=== PATIENT | female | born 1940 | race Caucasian/White ===

== ENCOUNTER 2020-03-31 07:47 | Outpatient (REF) | payer MEDICARE, OTHER, SELFPAY ==
[2020-03-31 08:40] LABS: MANUAL DIFF FLAG NO
[2020-03-31 08:48] LABS: Basophils Percent Auto 0.6 % (0-2); Eosinophils Absolute Auto 0.1 X10*3/uL (0.0-0.4); Eosinophils Percent Auto 1.3 % (0-4); Hematocrit 40.6 % (37-47); Hemoglobin 12.9 g/dl (12.0-16.0); Imm Gran Abs Auto 0.02 X10*3/uL (0.00-0.03); Imm Gran Pct Auto 0.4 % (0.0-0.4); Lymphocytes Absolute Auto 1.5 X10*3/uL (1.2-4.9); Lymphocytes Percent Auto 28.4 % (20-40); Mean Corpuscular HGB Conc 31.8 g/dl (31.0-35.0); Mean Corpuscular Hemoglobin 28.2 pg (27.0-33.0); Mean Corpuscular Volume 88.8 fL (80-98); Mean Platelet Volume 9.6 fL (9.4-12.3); Monocytes Absolute Auto 0.4 X10*3/uL (0.1-1.2); Monocytes Percent Auto 6.7 % (2-11); Neutrophils Absolute Auto 3.4 X10*3/uL (2.0-8.3); Neutrophils Percent Auto 62.6 % (45-73); Platelet Count 270 X10*3/uL (160-400); Red Blood Count 4.57 X10*6/uL (4.20-5.50); Red Cell Distribution Width 14.1 % (11.0-16.0); White Blood Count 5.4 X10*3/uL (4.8-10.8)
[2020-03-31 09:23] LABS: Alanine Aminotransferase 35 U/L (0-31); Albumin Level 4.7 g/dL (3.5-5.0); Alkaline Phosphatase 61 U/L (39-117); Anion Gap 14 (12-20); Aspartate Amino Transferase 33 U/L (5-31); Bilirubin Total 0.7 mg/dL (0.0-1.0); Blood Urea Nitrogen 23 mg/dL (9-16); Calcium 9.7 mg/dL (8.4-10.2); Carbon Dioxide 29 mmol/L (22-29); Chloride 103 mmol/L (96-108); Estimated Glomerular Filt Rate > 60; Glucose Fasting 95 mg/dL (60-99); Potassium 3.9 mmol/L (3.3-5.1); Sodium 142 mmol/L (135-145); Total Protein 7.3 g/dL (6.5-8.0)
[2020-03-31 09:35] LABS: Estimated Average Glucose 117 mg/dL; Hemoglobin A1c % 5.7 %
== END 2020-03-31 07:48 | disposition home or self-care (01) ==
LOC: HO.LAB 07:47
PROVIDERS: PCP Internal Medicine Endocrinology, Diabetes & Metabolism; Visit Provider Internal Medicine Endocrinology, Diabetes & Metabolism
DX: I10 Essential (primary) hypertension (principal); R73.03 Prediabetes
CPT/HCPCS: 36415; 80053; 83036; 85025

== ENCOUNTER 2020-11-13 08:35 | Outpatient (REF) | payer MEDICARE, OTHER, SELFPAY ==
[2020-11-13 09:25] LABS: Estimated Average Glucose 120 mg/dL; Hemoglobin A1c % 5.8 %
[2020-11-13 09:37] LABS: Alanine Aminotransferase 28 U/L (0-31); Albumin Level 4.6 g/dL (3.5-5.0); Alkaline Phosphatase 57 U/L (39-117); Anion Gap 14 (12-20); Aspartate Amino Transferase 25 U/L (5-31); Bilirubin Total 0.8 mg/dL (0.0-1.0); Blood Urea Nitrogen 16 mg/dL (9-16); Carbon Dioxide 31 mmol/L (22-29); Chloride 107 mmol/L (96-108); Cholesterol 197 mg/dL; Estimated Glomerular Filt Rate > 60; Glucose Fasting 101 mg/dL (60-99); HDL Cholesterol 61 mg/dL; LDL Cholesterol Calculated 113 mg/dl; Potassium 4.5 mmol/L (3.3-5.1); Sodium 147 mmol/L (135-145); Total Protein 7.1 g/dL (6.5-8.0); Triglycerides 119 mg/dL
== END 2020-11-13 08:36 | disposition home or self-care (01) ==
LOC: HO.LAB 08:35
PROVIDERS: PCP Internal Medicine Endocrinology, Diabetes & Metabolism; Visit Provider Internal Medicine Endocrinology, Diabetes & Metabolism
DX: I10 Essential (primary) hypertension (principal); E78.5 Hyperlipidemia, unspecified; R73.03 Prediabetes
CPT/HCPCS: 36415; 80053; 80061; 83036

== ENCOUNTER 2021-07-20 10:26 | Outpatient (REF) | payer MEDICARE, OTHER, SELFPAY ==
[2021-07-20 11:01] LABS: COVID-19 Test Negative (Negative)
== END 2021-07-20 10:27 | disposition home or self-care (01) ==
LOC: HO.LAB 10:26
PROVIDERS: PCP Internal Medicine Endocrinology, Diabetes & Metabolism; Visit Provider Internal Medicine
DX: Z20.822 Contact with and (suspected) exposure to COVID-19 (principal)
CPT/HCPCS: 87635; C9803

== ENCOUNTER 2022-04-30 09:21 | Outpatient (REF) | payer MEDICARE, OTHER, SELFPAY ==
[2022-04-30 10:21] LABS: COVID-19 Test Negative (Negative); IDNOW Serial# 08D9AD1C
== END 2022-04-30 09:22 | disposition home or self-care (01) ==
LOC: HO.LAB 09:21
PROVIDERS: PCP Internal Medicine Endocrinology, Diabetes & Metabolism; Visit Provider Internal Medicine
DX: Z20.822 Contact with and (suspected) exposure to COVID-19 (principal)
CPT/HCPCS: 87635; C9803

== ENCOUNTER 2022-05-17 11:00 | Emergency (ER) | payer MEDICARE, OTHER, SELFPAY ==
--- NOTE | ~2022-05-17 | XR_ITS ---
EXAMINATION: XR HIP, RIGHT CLINICAL INFORMATION: Pain. COMPARISON: None available. TECHNIQUE: Two views of the right hip. FINDINGS: AP pelvis: There is mild loss of right hip joint space. Left hip joint space is normal. No visible fracture, dislocation or subluxation seen. SI joints are normal. There is moderate size spondylosis L4-L5 disc level. Right hip: The right hip joint space is maintained normal. No visible acute fracture, dislocation or subluxation seen. No bony erosive changes. The soft tissues are normal. XR/XR hip RT w PEL1V IMPRESSION: 1. Mild degenerative changes right hip joint. No visible acute fracture or dislocation seen. 2. Unremarkable right hip exam. 3. Moderate spondylosis L4-L5 disc level.
[2022-05-17 11:04] VITALS: BP 157/94; PULSE 110; RESP 18; TEMP 36.7; O2SAT 99; BMI 24.3
--- NOTE | 2022-05-17 11:08 | ED_ITS ---
HPI - General Adult General Chief complaint: General Medical <BLU Neville - Last Filed: 05/17/22 15:52> Stated complaint: r leg pain <BLU Neville Last Filed: 05/17/22 15:52> Time Seen by Provider: 05/17/22 11:54 <BLU Neville Last Filed: 05/17/22 15:52> Source: patient <BLU Mcdonnell Last Filed: 05/17/22 13:57> Mode of arrival: ambulatory <BLU Mcdonnell Last Filed: 05/17/22 13:57> Limitations: no limitations <BLU Mcdonnell Last Filed: 05/17/22 13:57> History of Present Illness HPI narrative: Patient is a 82 year old assigned female at with no significant PMHx presenting to the emergency department today with right sided groin pain s/p getting into an SUV 5 days ago. Patient states that her groin pain is worse with ambulation and without radiation. Has tried diclofenac, Advil, and Tylenol with minimal relief. Patient states that she stopped the diclofenac secondary to gastric upset. Patient denies any dizziness, lightheadedness, abdominal pain, nausea, vomiting, fever, chills, blurry vision, double vision, loss of vision, chest pain, difficulty breathing, shortness of breath, back pain, night sweats, pain with urination, increased urinary frequency, increased urinary urgency, blood in her urine or stool, syncope or a near syncopal episode, bowel incontinence, bladder incontinence, bowel retention, bladder retention, or any other complaints at this time. <BLU Mcdonnell - Last Filed: 05/17/22 13:57> Onset (ago): day(s) (5) <BLU Mcdonnell - Last Filed: 05/17/22 13:57> Location: pelvis <BLU Mcdonnell Last Filed: 05/17/22 13:57> Radiation: non-radiation <BLU Mcdonnell - Last Filed: 05/17/22 13:57> Severity: mild <BLU Mcdonnell Last Filed: 05/17/22 13:57> Severity scale (1-10): 2 <BLU Mcdonnell Last Filed: 05/17/22 13:57> Quality: sharp <BLU Mcdonnell - Last Filed: 05/17/22 13:57> Relieving factors: immobilization <BLU Mcdonnell - Last Filed: 05/17/22 13:57> Exacerbating factors: movement <BLU Mcdonnell - Last Filed: 05/17/22 13:57> Associated symptoms: denies other symptoms <BLU Mcdonnell Last Filed: 05/17/22 13:57> Treatments prior to arrival: NSAID <BLU Mcdonnell - Last Filed: 05/17/22 13:57> Related Data Home medications: Previous Rx's Medication Instructions Recorded cyclobenzaprine 5 mg tablet 5 mg PO TID PRN groin strain 7 05/17/22 days #21 tabs <BLU Neville Last Filed: 05/17/22 15:52> Allergies/adverse reactions: Allergies Allergy/AdvReac Type Severity Reaction Status Date / Time lisinopril [LISINOPRIL] Allergy Unknown UNKNOWN Unverified 10/25/19 14:34 meperidine [From DEMEROL] Allergy Unknown UNKNOWN Unverified 10/25/19 14:34 <BLU Neville - Last Filed: 05/17/22 15:52> Review of Systems Review of Systems: Yes all other systems are reviewed and are negative <BLU Mcdonnell Last Filed: 05/17/22 13:57> Constitutional: Constitutional: Reports no additional constitutional complaints <BLU Mcdonnell Last Filed: 05/17/22 13:57> Eyes: Eyes: Reports no additional eye complaints and Denies loss of vision <BLU Mcdonnell - Last Filed: 05/17/22 13:57> ENT: Reports system reviewed and no additional complaints, except as documented and Denies dizziness <BLU Mcdonnell Last Filed: 05/17/22 13:57> Cardiovascular: Cardiovascular: Reports no additional cardiovascular complaints <BLU Mcdonnell - Last Filed: 05/17/22 13:57> Respiratory: Respiratory: Reports no additional respiratory complaints <BLU Mcdonnell Last Filed: 05/17/22 13:57> Gastrointestinal: Gastrointestinal: Reports no additional gastrointestinal complaints, Denies abdominal pain, Denies melena, Denies hematochezia, Denies change in bowel habits and Denies change in stool character <BLU Mcdonnell - Last Filed: 05/17/22 13:57> Genitourinary: Genitourinary: Denies hematuria, Denies urinary frequency, Denies dysuria, Denies urinary incontinence, Denies urinary hesitancy and Denies urinary urgency <BLU Mcdonnell - Last Filed: 05/17/22 13:57> Musculoskeletal: Musculoskeletal: Reports no additional musculoskeletal complaints, Denies numbness and Denies tingling <BLU Mcdonnell - Last Filed: 05/17/22 13:57> Comments: right groin pain <BLU Mcdonnell - Last Filed: 05/17/22 13:57> Neurologic: Denies dizziness, Denies loss of vision, Denies numbness and Denies tingling <BLU Mcdonnell - Last Filed: 05/17/22 13:57> Psychiatric: Psychiatric: Reports no additional psychiatric complaints <BLU Mcdonnell - Last Filed: 05/17/22 13:57> Endocrine: Endocrine: Reports no additional endocrine complaints <BLU Mcdonnell - Last Filed: 05/17/22 13:57> Hematologic/Lymphatic: Hematologic/Lymphatic: Reports no additional hematologic/lymphatic complaints <BLU Mcdonnell Last Filed: 05/17/22 13:57> Allergic/Immunologic: Allergic/Immunologic: Reports no additional allergic/immunologic complaints <BLU Mcdonnell Last Filed: 05/17/22 13:57> [facility] Past Medical History Attestation statement: The following information was validated with the patient. <BLU Mcdonnell - Last Filed: 05/17/22 13:57> Source: old records reviewed and nursing notes reviewed <BLU Mcdonnell Last Filed: 05/17/22 13:57> Social History Social History: Social History Advance Directives: Yes Advance Directives Information Provided: No Advance Directives on File: No <BLU Neville - Last Filed: 05/17/22 15:52> Physical Exam ED Vital Signs: Vital Signs - 24 hr 05/17/22 11:04 Temperature 98.1 F Pulse Rate 110 H Respiratory Rate 18 Blood Pressure 157/94 H Pulse Oximetry 99 Oxygen Delivery Method Room Air BMI result Body Mass Index 24.3 <BLU Neville - Last Filed: 05/17/22 15:52> Vital Signs - 24 hr 05/17/22 11:04 Temperature 98.1 F Pulse Rate 110 H Respiratory Rate 18 Blood Pressure 157/94 H Pulse Oximetry 99 Oxygen Delivery Method Room Air BMI result Body Mass Index 24.3 <BLU Mcdonnell - Last Filed: 05/17/22 13:57> Const General: cooperative, healthy appearing and no acute distress <BLU Mcdonnell - Last Filed: 05/17/22 13:57> Nutritional Appearance: average body habitus <BLU Mcdonnell - Last Filed: 05/17/22 13:57> Orientation/consciousness: oriented to person, oriented to place, oriented to time and patient oriented x3 <BLU Mcdonnell - Last Filed: 05/17/22 13:57> Limitations: no limitations <BLU Mcdonnell - Last Filed: 05/17/22 13:57> HENMT Head: Yes normal to inspection <BLU Mcdonnell - Last Filed: 05/17/22 13:57> Ears: hearing grossly normal bilaterally <BLU Mcdonnell - Last Filed: 05/17/22 13:57> General nose exam: Normal external nose present <BLU Mcdonnell - Last Filed: 05/17/22 13:57> Face and sinus: Yes normal facial exam <BLU Mcdonnell - Last Filed: 05/17/22 13:57> Mouth: Normal oral and palatal mucosa present, no drooling and no muffled voice <BUL Mcdonnell - Last Filed: 05/17/22 13:57> Eyes General: appearance normal, both eyes and all related structures <BLU Mcdonnell - Last Filed: 05/17/22 13:57> Periorbital: periorbital findings normal <BLU Mcdonnell - Last Filed: 05/17/22 13:57> Eyelids: Yes eyelids normal <BLU Mcdonnell - Last Filed: 05/17/22 13:57> Conjunctivae: conjunctivae normal <Es Godinez PA - Last Filed: 05/17/22 13:57> Pupils: Equal, round and reactive pupils present <Es Godinez PA - Last Filed: 05/17/22 13:57> EOM: EOMs intact bilaterally <Es Godinez PA - Last Filed: 05/17/22 13:57> Neck Neck: Yes normal visual inspection and Yes full ROM <Es Godinez PA - Last Filed: 05/17/22 13:57> Chest Chest palpation & inspection: normal inspection of the chest <Es Godinez PA - Last Filed: 05/17/22 13:57> Resp Effort & Inspection: normal respiratory effort and able to speak in complete sentences <Es Godinez PA - Last Filed: 05/17/22 13:57> Auscultation: clear to auscultation bilaterally <Es Godinez PA - Last Filed: 05/17/22 13:57> Cardio Rate: regular rate <Es Godinez PA - Last Filed: 05/17/22 13:57> GI Inspection: Yes normal to inspection <Es Godinez PA - Last Filed: 05/17/22 13:57> Skin General skin exam: no rashes or lesions noted, no ecchymosis and no erythema <Es Godinez PA - Last Filed: 05/17/22 13:57> Neuro General: oriented to person, oriented to place, oriented to time and patient oriented x3 <Es Godinez PA - Last Filed: 05/17/22 13:57> Cranial nerves: Yes Equal, round and reactive pupils present <Es Godinez PA - Last Filed: 05/17/22 13:57> Cognition (Neuro): normal cognition <Es Godinez PA - Last Filed: 05/17/22 13:57> Motor exam (neuro): 5/5 motor strength present throughout <Es Godinez PA - Last Filed: 05/17/22 13:57> Sensory Exam: Normal double simultaneous stimulation for sensation <Es Godinez PA - Last Filed: 05/17/22 13:57> Coordination: [id number] test normal <BLU Mcdonnell - Last Filed: 05/17/22 13:57> Extrem Other: Right inguinal ligament tender to palpation with full ROM and 5/5 streng th. No erythema/ecchymosis/deformity noted. <BLU Mcdonnell - Last Filed: 05/17/22 13:57> General: Yes normal to inspection and Yes full ROM <BLU Mcdonnell - Last Filed: 05/17/22 13:57> Right lower extremity: normal to inspection, full ROM and no joint enlargement <BLU Mcdonnell - Last Filed: 05/17/22 13:57> Psych Appearance: grossly normal <BLU Mcdonnell - Last Filed: 05/17/22 13:57> Mental Status: mental status grossly normal <BLU Mcdonnell - Last Filed: 05/17/22 13:57> Affect: normal affect <BLU Mcdonnell - Last Filed: 05/17/22 13:57> Attitude: cooperative <BLU Mcdonnell - Last Filed: 05/17/22 13:57> Thought process: Normal thought process present <BLU Mcdonnell - Last Filed: 05/17/22 13:57> Thought content: Normal thought content present <BLU Mcdonnell - Last Filed: 05/17/22 13:57> Insight: Good insight present (Psych) <BLU Mcdonnell - Last Filed: 05/17/22 13:57> Course Course Course Narrative: RME: 82 yold female presents to the ED for right groin pain worse on movement after trying to get into her SUV. patient states she went to her PCP and had normal right hip/femur xray last week after right groin pain starting. Labs and doppler of RLE ordered. <BLU Neville - Last Filed: 05/17/22 15:52> Medications Administered Discontinued Medications Generic Name Dose Route Start Last Admin Trade Name Freq PRN Reason Stop Dose Admin Cyclobenzaprine HCl 5 mg 05/17/22 12:14 05/17/22 12:23 Cyclobenzaprine Hcl 5 Mg Tablet PO 05/17/22 12:15 5 mg ONCE ONE Administration <BLU Neville Last Filed: 05/17/22 15:52> Medications Administered Discontinued Medications Generic Name Dose Route Start Last Admin Trade Name [place] PRN Reason Stop Dose Admin Cyclobenzaprine HCl 5 mg 05/17/22 12:14 05/17/22 12:23 Cyclobenzaprine Hcl 5 Mg Tablet PO 05/17/22 12:15 5 mg ONCE ONE Administration <BLU Mcdonnell Last Filed: 05/17/22 13:57> Medical Decision Making Medical Decision Making MDM Narrative: Patient is an 82 year old assigned female at with no significant PMH presenting to the emergency department today with right sided groin pain x5 days. Patient's physical exam showed mild tenderness to the affected area but was otherwise unremarkable. Patient's right hip XR showed no acute process. Patient's clinical presentation is most consistent with a right groin strain. I explained my physical exam findings as well as all test results to the patient. I answered all questions asked by the patient. Patient received cyclobenzaprine which she stated helped her symptoms significantly. I stressed the importance of the patient taking her medication as prescribed. I stressed the importance of the patient following up with her primary care provider and an orthopedic provider. I stressed the importance of the patient returning to the emergency department immediately if her symptoms were to worsen or if she were to develop any dizziness, shortness of breath, difficulty breathing, chest pain, blurry vision, loss of vision, nausea, vomiting, abdominal pain, fever, chills, back pain, or any other complaints. Patient verbalized agreement and understanding with this treatment plan and discharge. <BLU Mcdonnell Last Filed: 05/17/22 13:57> Differential Diagnosis Differential Diagnoses: The differential diagnosis associated with the presentation includes <BLU Mcdonnell Last Filed: 05/17/22 13:57> groin pain, groin strain <BLU Mcdonnell Last Filed: 05/17/22 13:57> Independent Interpretation I performed an independent interpretation of an: Plain X-Ray <BLU Mcdonnell Last Filed: 05/17/22 13:57> Interpretation: My interpretation is in agreement with the radiologist's impression of this imaging study. EXAMINATION: XR HIP, RIGHT CLINICAL INFORMATION: Pain. COMPARISON: None available. TECHNIQUE: Two views of the right hip. FINDINGS: AP pelvis: There is mild loss of right hip joint space. Left hip joint space is normal. No visible fracture, dislocation or subluxation seen. SI joints are normal. There is moderate size spondylosis L4-L5 disc level. Right hip: The right hip joint space is maintained normal. No visible acute fracture, dislocation or subluxation seen. No bony erosive changes. The soft tissues are normal.? XR/XR hip RT w PEL1V IMPRESSION: 1.? Mild degenerative changes right hip joint. No visible acute fracture or dislocation seen. 2.? Unremarkable right hip exam. 3.? Moderate spondylosis L4-L5 disc level. ? Dictated By: Joshua Burnett MD Signed By: Electronically signed by Joshua Burnett MD 05/17/22 1134 <BLU Mcdonnell - Last Filed: 05/17/22 13:57> Discharge Plan Discharge Clinical Impression: Groin strain <BLU Neville Last Filed: 05/17/22 15:52> Patient Disposition: Home, Self-Care <BLU Neville Last Filed: 05/17/22 15:52> Instructions: Groin Strain (ED) <BLU Neville Last Filed: 05/17/22 15:52> Additional Instructions: Follow up with your primary care provider and an orthopedic provider. Return to the emergency department immediately if your symptoms worsen or if you develop any dizziness, shortness of breath, difficulty breathing, chest pain, blurry vision, loss of vision, nausea, vomiting, abdominal pain, fever, chills, back pain, or any other complaints. <BLU Neville Last Filed: 05/17/22 15:52> Prescriptions: New cyclobenzaprine 5 mg tablet 5 mg PO TID PRN (Reason: groin strain) 7 Days Qty: 21 0RF <BLU Neville - Last Filed: 05/17/22 15:52> Referrals: [facility] [Provider Group] (Call to establish and follow up with an orthopedic provider. ) <BLU Neville - Last Filed: 05/17/22 15:52> Interventions: ED Discharge Assessment Last Done: 05/17/22 12:19 <BLU Neville - Last Filed: 05/17/22 15:52> Discharge Date/Time: 05/17/22 12:28 <BLU Neville - Last Filed: 05/17/22 15:52> Print Language: Thai <BLU Neville - Last Filed: 05/17/22 15:52>
[2022-05-17] MEDS: Cyclobenzaprine HCl 5 MG TABLET PO (12:23)
== END 2022-05-17 12:28 | disposition home or self-care (01) ==
PROVIDERS: Emergency Provider Emergency Medicine; PCP Internal Medicine Endocrinology, Diabetes & Metabolism
DX: R10.2 Pelvic and perineal pain (principal); M25.551 Pain in right hip
CPT/HCPCS: 73502; 99283

== ENCOUNTER 2022-05-18 15:03 | Emergency (ER) | payer MEDICARE, OTHER, SELFPAY ==
--- NOTE | ~2022-05-18 | US_ITS ---
EXAMINATION: US VENOUS ULTRASOUND WITH DOPPLER LOWER EXTREMITY, RIGHT CLINICAL INFORMATION: Right lower extremity pain. COMPARISON: None available. TECHNIQUE: Ultrasound of the deep veins is performed from the hip to the calf with compression sonography and color and pulse Doppler assessment. Spectral analysis with color-flow imaging is performed. FINDINGS: There is normal venous compression and respiratory variation and augmented flow. The visualized common femoral vein, superficial femoral vein, profunda femoral vein, popliteal vein, and the trifurcation region shows no evidence of deep venous thrombosis. Left common femoral vein is patent. Superficial varices with vascular flow is seen in the calf medially measuring up to 0.5 cm in maximum diameter. No right popliteal cyst. The subcutaneous soft tissues are unremarkable. US/US venous duplex LE RT IMPRESSION: 1. No evidence for deep venous thrombosis in the visualized veins of the right lower extremity. 2. Superficial varices in the medial right calf.
--- NOTE | 2022-05-18 15:12 | ED.LOWEXIN ---
HPI - Extremity Injury (Lower) General Chief Complaint: General Medical <BLU Cuadra - Last Filed: 05/18/22 15:17> Stated Complaint: pain in right leg <BLU Cuadra - Last Filed: 05/18/22 15:17> Time Seen by Provider: 05/18/22 15:41 <BLU Cuadra - Last Filed: 05/18/22 15:17> History of Present Illness HPI Narrative: Patient complains of right hip and groin pain for 2 weeks, which worsened when she was getting out of her SUV 5 days ago, pain is worse with movement and when she puts weight on it, she is able to walk but with a limp She has no neck pain no back pain no chest pain no shortness of breath no other abdominal pain no nausea vomiting or diarrhea no dysuria no frequency no changes to bowel or bladder, no radiation of pain <BLU Hu - Last Filed: 05/22/22 19:52> Related Data Home Medications: Previous Rx's Medication Instructions Recorded cyclobenzaprine 5 mg tablet 5 mg PO TID PRN groin strain 7 05/17/22 days #21 tabs oxycodone 5 mg tablet 2.5 mg PO Q6H PRN pain #14 tabs 05/18/22 oxycodone 5 mg tablet 2.5 mg PO Q6H PRN pain #14 tabs 05/18/22 walker #1 ea 05/18/22 <BLU Cuadra - Last Filed: 05/18/22 15:17> Allergies/Adverse Reactions: Allergies Allergy/AdvReac Type Severity Reaction Status Date / Time lisinopril [LISINOPRIL] Allergy Unknown UNKNOWN Unverified 10/25/19 14:34 meperidine [From DEMEROL] Allergy Unknown UNKNOWN Unverified 10/25/19 14:34 <BLU Cuadra - Last Filed: 05/18/22 15:17> [facility] Past Medical History Source: nursing notes reviewed <BLU Hu - Last Filed: 05/22/22 19:52> Social History Social History: Social History Advance Directives: No Advance Directives Information Provided: No <BLU Cuadra - Last Filed: 05/18/22 15:17> Physical Exam Vital Signs: Vital Signs: Last Vital Signs Temp 98.2 F 05/18/22 15:14 Pulse 102 H 05/18/22 15:14 Resp 18 05/18/22 15:14 BP 153/73 H 05/18/22 15:14 Pulse Ox 96 05/18/22 15:14 O2 Del Method Room Air 05/18/22 15:14 BMI result Body Mass Index 25.0 <BLU Cuadra - Last Filed: 05/18/22 15:17> Vital Signs: Last Vital Signs Temp 98.2 F 05/18/22 15:14 Pulse 102 H 05/18/22 15:14 Resp 18 05/18/22 15:14 BP 153/73 H 05/18/22 15:14 Pulse Ox 96 05/18/22 15:14 O2 Del Method Room Air 05/18/22 15:14 BMI result Body Mass Index 25.0 <BLU Hu Last Filed: 05/22/22 19:52> General appearance no acute distress Head is normocephalic atraumatic Neck is supple nontender Respiratory no distress The back full range of motion no tenderness in the back The abdominal exam there is some tenderness in the right groin area, the skin there is normal there is no obvious swelling no palpable lymph node no hernia was palpated, no rebound no guarding, pain is worst when she tries to do a straight leg raise Extremities there is limited range of motion in the right hip due to pain There is no redness or warmth over the hip or groin area Neurovascular intact distal Neuro motor is 5/5 x4, sensation in both feet is intact and symmetrical, patient can ambulate with a limp <BLU Hu - Last Filed: 05/22/22 19:52> Course Course Course Narrative: RME--82-year-old female w/PMHx polymyalgia presenting to the ED complaining of continued RLE pain > right groin and lateral tibia. Was seen in our ED yesterday, had negative hip/pelvis XR and dx with groin stain. Reports pain worse with movement and ambulation. Ambulating w/limping gait. mild R lateral tib/fib pain. No edema. Abd soft/nontender Venous duplex US ordered <BLU Cuadra - Last Filed: 05/18/22 15:17> RME--82-year-old female w/PMHx polymyalgia presenting to the ED complaining of continued RLE pain > right groin and lateral tibia. Was seen in our ED yesterday, had negative hip/pelvis XR and dx with groin stain. Reports pain worse with movement and ambulation. Ambulating w/limping gait. mild R lateral tib/fib pain. No edema. Abd soft/nontender Venous duplex US ordered Ultrasound was done of the right lower extremity was negative for clot X-rays done previously several days ago showed some arthritis but no acute fractures Patient does have MRI scheduled through her primary care doctor in a few days She was given analgesics in the department which was somewhat helpful and she was able to ambulate from the department She is referred orthopedist as well as primary doctor for further evaluation <BLU Hu - Last Filed: 05/22/22 19:52> Medications Administered Discontinued Medications Generic Name Dose Route Start Last Admin Trade Name Freq PRN Reason Stop Dose Admin Oxycodone HCl 2.5 mg 05/18/22 18:03 05/18/22 18:15 Oxycodone Hcl Immed Release 5 Mg Tablet PO 05/18/22 18:04 2.5 mg ONCE ONE Administration <BLU Cuadra - Last Filed: 05/18/22 15:17> Medications Administered Discontinued Medications Generic Name Dose Route Start Last Admin Trade Name Freq PRN Reason Stop Dose Admin Oxycodone HCl 2.5 mg 05/18/22 18:03 05/18/22 18:15 Oxycodone Hcl Immed Release 5 Mg Tablet PO 05/18/22 18:04 2.5 mg ONCE ONE Administration <BLU Hu - Last Filed: 05/22/22 19:52> Discharge Plan Discharge Clinical Impression: Groin pain <BLU Cuadra - Last Filed: 05/18/22 15:17> Patient Disposition: Home, Self-Care <BLU Cuadra - Last Filed: 05/18/22 15:17> Additional Instructions: ultrasound did not show any blood clot X-ray done on May 17 showed some arthritis but no acute injury Pain may be from muscle strain or injury but I am not certain Follow with primary doctor and as scheduled for MRI of the area later this week Return to the ER any time for any worse condition or any concerns Follow with orthopedist as well for further evaluation Use walker for fall prevention <BLU Cuadra - Last Filed: 05/18/22 15:17> Prescriptions: New oxycodone 5 mg tablet 2.5 mg PO Q6H PRN (Reason: pain) Qty: 14 0RF Rx Instructions: Partial Fill upon patient request. oxycodone 5 mg tablet 2.5 mg PO Q6H PRN (Reason: pain) Qty: 14 0RF Rx Instructions: Partial Fill upon patient request. (DME) walker Misc See Rx Instructions .Route Qty: 1 0RF Rx Instructions: As directed No Action cyclobenzaprine 5 mg tablet 5 mg PO TID PRN (Reason: groin strain) 7 Days Qty: 21 0RF <BLU Cuadra - Last Filed: 05/18/22 15:17> Referrals: Timothy Berger MD [Physician] - ( right groin and hip pain) <BLU Cuadra - Last Filed: 05/18/22 15:17> Interventions: ED Discharge Assessment Last Done: 05/18/22 18:22 <BLU Cuadra - Last Filed: 05/18/22 15:17> Discharge Date/Time: 05/18/22 18:23 <BLU Cuadra - Last Filed: 05/18/22 15:17>
[2022-05-18 15:14] VITALS: BP 153/73; PULSE 102; RESP 18; TEMP 36.8; O2SAT 96; BMI 25.0
[2022-05-18] MEDS: oxyCODONE HCl Immed Release 5 MG TABLET 2.5 MG PO (18:15)
== END 2022-05-18 18:23 | disposition home or self-care (01) ==
PROVIDERS: Emergency Provider Emergency Medicine; PCP Internal Medicine Endocrinology, Diabetes & Metabolism
DX: M79.604 Pain in right leg (principal); R10.2 Pelvic and perineal pain; R60.0 Localized edema; Z79.899 Other long term (current) drug therapy
CPT/HCPCS: 93971; 99282; 99283; 99284

== ENCOUNTER 2023-08-19 13:08 | Outpatient (REF) | payer MEDICARE, OTHER, SELFPAY ==
[2023-08-19 13:20] LABS: MANUAL DIFF FLAG NO
[2023-08-19 13:34] LABS: Basophils Percent Auto 0.6 % (0-2); Eosinophils Absolute Auto 0.1 X10*3/uL (0.0-0.4); Eosinophils Percent Auto 1.4 % (0-4); Hematocrit 37.3 % (37.0-47.0); Hemoglobin 12.1 g/dl (12.0-16.0); Imm Gran Abs Auto 0.02 X10*3/uL (0.00-0.03); Imm Gran Pct Auto 0.3 % (0.0-0.4); Lymphocytes Absolute Auto 1.9 X10*3/uL (1.2-4.9); Lymphocytes Percent Auto 28.9 % (20-40); Mean Corpuscular HGB Conc 32.4 g/dl (31.0-35.0); Mean Corpuscular Hemoglobin 28.5 pg (27.0-33.0); Mean Corpuscular Volume 87.8 fL (80.0-98.0); Mean Platelet Volume 9.1 fL (9.4-12.3); Monocytes Absolute Auto 0.4 X10*3/uL (0.1-1.2); Monocytes Percent Auto 6.6 % (2-11); Neutrophils Percent Auto 62.2 % (45-73); Platelet Count 273 X10*3/uL (160-400); Red Blood Count 4.25 X10*6/uL (4.20-5.50); Red Cell Distribution Width 14.3 % (11.0-16.0); White Blood Count 6.4 X10*3/uL (4.8-10.8)
[2023-08-19 14:12] LABS: Alanine Aminotransferase 28 U/L (0-31); Albumin Level 4.4 g/dL (3.5-5.0); Alkaline Phosphatase 66 U/L (39-117); Anion Gap 12 (12-20); Aspartate Amino Transferase 27 U/L (5-31); Bilirubin Total 0.4 mg/dL (0.0-1.0); Blood Urea Nitrogen 13 mg/dL (9-16); Calcium 10.1 mg/dL (8.4-10.2); Carbon Dioxide 26 mmol/L (22-29); Chloride 104 mmol/L (96-108); Estimated Glomerular Filt Rate > 60; Glucose Random 117 mg/dL (60-115); Potassium 3.8 mmol/L (3.3-5.1); Sodium 138 mmol/L (135-145); Total Protein 7.3 g/dL (6.5-8.0)
[2023-08-19 14:28] LABS: Erythrocyte Sedimentation Rate 21 MM/HR (0-20)
[2023-08-19 14:38] LABS: Vitamin B12 468 pg/mL (200-900)
== END 2023-08-19 13:09 | disposition home or self-care (01) ==
LOC: HO.LAB 13:08
PROVIDERS: PCP Internal Medicine Endocrinology, Diabetes & Metabolism; Visit Provider Internal Medicine Endocrinology, Diabetes & Metabolism
DX: I10 Essential (primary) hypertension (principal); R53.1 Weakness; R22.33 Localized swelling, mass and lump, upper limb, bilateral
CPT/HCPCS: 36415; 80053; 82607; 85025; 85652